=== PATIENT | female | born 1930 | race Two or more races ===

== ENCOUNTER 2016-11-12 23:05 | Inpatient (IN) | payer MEDICARE ==
[~2016-11-12] VITALS: Ht 167.6 cm; Wt 77.6 kg
[2016-11-12] MEDS ORDERED: ZOFRAN4 M3 ORAL (23:17)
[2016-11-12] MEDS ORDERED: WARFARIN SODIU2.5 MG ORAL (23:17)
[2016-11-12] MEDS ORDERED: AMLODIPINE BESYL5 MG ORAL (23:17)
[2016-11-12] MEDS ORDERED: FUROSEMIDE40 MG ORAL (23:17)
[2016-11-12] MEDS ORDERED: Hydrocortisone PO (23:17)
[2016-11-12] MEDS ORDERED: Ipratropium 0.02% Inh Soln 2.5ml UD HHN ONE (23:30)
[2016-11-12] MEDS ORDERED: Albuterol ud Inhalation HHN ONE (23:30)
[2016-11-13] VITALS (9 sets, daily range): BP systolic 83–111; BP diastolic 21–67
[2016-11-13 01:26] LABS: BASOPHILS % (AUTO) 0.4 % (0.0-2.0); LYMPHOCYTES % (AUTO) 33.1 % (20.0-45.0); MEAN CORPUSCULAR HEMOGLOBIN 33.9 PG (27.0-31.0); MEAN CORPUSCULAR HGB CONC 31.3 G/DL (32.0-36.0); MEAN CORPUSCULAR VOLUME 108 FL (80-99); MEAN PLATELET VOLUME 6.3 FL (6.5-10.1); MONOCYTES % (AUTO) 7.9 % (1.0-10.0); NEUTROPHILS % (AUTO) 57.7 % (45.0-75.0); PLATELET COUNT 173 K/UL (150-450); RED BLOOD COUNT 4.22 M/UL (4.20-5.40); RED CELL DISTRIBUTION WIDTH 14.1 % (11.6-14.8); WHITE BLOOD COUNT 11.4 K/UL (4.8-10.8)
[2016-11-13 01:39] LABS: INR 2.6 (0.9-1.1); PROTHROMBIN TIME 27.8 SEC (9.30-11.50)
[2016-11-13 02:14] LABS: ALANINE AMINOTRANSFERASE 10 U/L (3-33); ALBUMIN/GLOBULIN RATIO 0.8 (1.0-2.7); ANION GAP 22 (5-15); ASPARTATE AMINO TRANSFERASE 45 U/L (5-40); CALCIUM 8.6 mg/dL (8.6-10.2); CARBON DIOXIDE 19 mEQ/L (20-30); CHLORIDE 94 mEQ/L (98-107); CREATININE 2.5 mg/dL (0.5-0.9); HEMOLYSIS 157; POTASSIUM 4.9 mEQ/L (3.4-4.9); SODIUM 135 mEQ/L (135-145); TOTAL PROTEIN 7.9 g/dL (6.6-8.7); TROPONIN I 0.33 ng/mL (<=0.30)
[2016-11-13 02:29] LABS: CKMB 6.3 ng/mL (< 3.8)
[2016-11-13] MEDS ORDERED: Hydrocortisone 20mg tab ORAL ONE (02:45)
--- NOTE | 2016-11-13 03:47 | Emergency Room Report ---
History of Present Illness General Chief Complaint: Dyspnea/Respdistress Source: Patient Present Illness HPI Patient presents with complaints of shortness of breath Initially was in acute distress not able to provide much input Patient hasn't significantly better throughout her stay and became more interactive and verbal Stating that she was having bodyaches Denies any headache neck pain or photophobia however Denies any chest pain Patient reports feeling sensation of shortness of breath She states that she has this on a usual basis but she felt that her symptoms had worsened denies any pleurisy Denies any vomiting or diarrhea denies any flank pain Patient has medical records reviewed from [facility] appears to have multiple comorbidities including aortic stenosis chronic hypoxia atrial fibrillation severe adrenal insufficiency anticoagulation history of anemia COPD Allergies: Coded Allergies: No Known Allergies (Unverified , 11/13/16) Patient History Past Medical History: see triage record Pertinent Family History: none Now: No Reviewed Nursing Documentation: PMH: Agreed, PSxH: Agreed Nursing Documentation-PMH Hx Hypertension: Yes Hx COPD: Yes Review of Systems All Other Systems: negative except mentioned in HPI Physical Exam Vital Signs Date Time Temp Pulse Resp B/P Pulse Ox O2 Delivery O2 Flow Rate FiO2 11/12/16 23:05 98.1 93 22 93/53 98 Simple Mask 8.0 Sp02 EP Interpretation: reviewed, normal General Appearance: moderate distress - Appeared short of breath and uncomfortable Head: normocephalic, atraumatic Eyes: bilateral eye EOMI, bilateral eye PERRL ENT: normal pharynx, no angioedema Neck: supple, no carotid bruits Respiratory: crackles - In both lower lobes and appear tachypneic, no obvious retractions were noted Cardiovascular #1: no gallop, irregularly irregular, other - Small amount of dependent edema in both lower extremities Gastrointestinal: soft, no mass Genitourinary: no CVA tenderness Musculoskeletal: normal inspection Neurologic: alert, oriented x3, responsive, motor strength/tone normal Skin: no rash, warm/dry Lymphatic: normal inspection Procedures Critical Care Time Critical Care Time 40 minutes for multiple re\re evaluations critical presentation with hypoxia And hypotensive Concern for end organ injury and life-threatening pathology Not including any procedural time Medical Decision Making Diagnostic Impression: Primary Impression: Respiratory distress Additional Impressions: Hypotension Atrial fibrillation Elevated troponin ER Course Patient is a fairly complex patient with multiple differential to consideration including but not limited to cardiac cardiopulmonary and vascular emergencies Patient has also history of severe adrenal insufficiency Was given steroid medication for that Patient received oxygenation IV hydration as well Continues to do significantly better blood pressure is improved and the patient' s symptoms improved Patient had become more verbal and appropriate CAT scan imaging was not obtained given the patient's mentation at this time Patient's troponin is mildly elevated She is however appropriately anticoagulated At this time admitted for further inpatient care Labs Test 11/12/16 23:40 11/13/16 01:30 White Blood Count 11.4 K/UL (4.8-10.8) Red Blood Count 4.22 M/UL (4.20-5.40) Hemoglobin 14.3 G/DL (12.0-16.0) Hematocrit 45.8 % (37.0-47.0) Mean Corpuscular Volume 108 FL (80-99) Mean Corpuscular Hemoglobin 33.9 PG (27.0-31.0) Mean Corpuscular Hemoglobin Concent 31.3 G/DL (32.0-36.0) Red Cell Distribution Width 14.1 % (11.6-14.8) Platelet Count 173 K/UL (150-450) Mean Platelet Volume 6.3 FL (6.5-10.1) Neutrophils (%) (Auto) 57.7 % (45.0-75.0) Lymphocytes (%) (Auto) 33.1 % (20.0-45.0) Monocytes (%) (Auto) 7.9 % (1.0-10.0) Eosinophils (%) (Auto) 1.0 % (0.0-3.0) Basophils (%) (Auto) 0.4 % (0.0-2.0) Prothrombin Time 27.8 SEC (9.30-11.50) Prothromb Time International Ratio 2.6 (0.9-1.1) Activated Partial Thromboplast Time 55 SEC (23-33) Sodium Level 135 mEQ/L (135-145) Potassium Level 4.9 mEQ/L (3.4-4.9) Chloride Level 94 mEQ/L (98-107) Carbon Dioxide Level 19 mEQ/L (20-30) Anion Gap 22 (5-15) Blood Urea Nitrogen 37 mg/dL (7-23) Creatinine 2.5 mg/dL (0.5-0.9) Estimat Glomerular Filtration Rate mL/min (>60) Glucose Level 69 mg/dL (74-106) Calcium Level 8.6 mg/dL (8.6-10.2) Total Bilirubin 0.5 mg/dL (0.0-1.2) Aspartate Amino Transf (AST/SGOT) 45 U/L (5-40) Alanine Aminotransferase (ALT/SGPT) 10 U/L (3-33) Alkaline Phosphatase 51 U/L (35-104) Total Creatine Kinase 341 U/L (26-140) Creatine Kinase MB 6.3 ng/mL (< 3.8) Creatine Kinase MB Relative Index 1.8 Troponin I 0.33 ng/mL (<=0.30) Pro-B-Type Natriuretic Peptide 9792 pg/mL (0-450) Total Protein 7.9 g/dL (6.6-8.7) Albumin 3.7 g/dL (3.5-5.2) Globulin 4.2 g/dL Albumin/Globulin Ratio 0.8 (1.0-2.7) EKG Diagnostic Results Rate: normal Rhythm: other ST Segments: other - Atrial fibrillation Rhythm Strip Diag. Results EP Interpretation: yes Rate: 89 Rhythm: no PVC's, no ectopy, other - atrial fibrillation Chest X-Ray Diagnostic Results EP Interpretation: Yes Findings: no consolidation, no effusion, no pneumothorax Number of Views: 1 Last Vital Signs Date Time Temp Pulse Resp B/P Pulse Ox O2 Delivery O2 Flow Rate FiO2 11/13/16 03:20 79 22 109/48 98 Nasal Cannula 4.0 11/12/16 23:05 98.1 Status: improved Disposition: ADMITTED INPATIENT Condition: Critical Referrals: [facility] (PCP) JACINTA KRISHNAMURTHY D.O. Nov 13, 2016 03:47
[2016-11-13] MEDS ORDERED: Norco 5mg/325mg tab ORAL PRN (07:00)
[2016-11-13] MEDS ORDERED: Furosemide 40mg tab ORAL SCH (09:00)
[2016-11-13] MEDS ORDERED: Hydrocortisone 20mg tab ORAL SCH (09:00)
[2016-11-13 09:21] LABS: THYROID STIMULATING HORMONE 0.008 uIU/mL (0.300-4.500)
[2016-11-13 09:22] LABS: TROPONIN I < 0.30 ng/mL (<=0.30)
--- NOTE | 2016-11-13 11:34 | Diagnostic Imaging Report ---
Indication: Chest Pain Comparison: August 04, 2006 A single view chest radiograph was obtained. Findings: No definite infiltrate or pulmonary vascular congestion identified. The heart is enlarged. The aorta is mildly enlarged consistent with atherosclerotic vascular disease. The bones are osteopenic. Impression: No acute disease
--- NOTE | 2016-11-13 14:17 | History & Physical ---
History and Physical History & Physicial Cover for Int Med-Dr Rojas no. [id number]. SOFIA BARBOSA Nov 13, 2016 14:17
[2016-11-13] MEDS ORDERED: Promethazine/Codeine 5ml UD ORAL PRN (15:15)
--- NOTE | 2016-11-13 15:32 | Consultation ---
History of Present Illness General Date patient seen: Nov 13, 2016 Chief Complaint: Dyspnea/Respdistress Referring physician: Dr. Rojas Reason for Consultation: dyspnea Present Illness HPI 86 year old female with extensive PMHx, with recurrent hospitalization brought in by Paramedics c/o "not feeling well, dry cough, having a cold". Pt has chronic Afib and cardiac disease as well, she was admitted to telemetry for further work up. Pt was borderline hypotensive with SPB at 90s. She is taking lasix and amlodipine and coumadin for her chronic afib. Allergies: Coded Allergies: No Known Allergies (Unverified , 11/13/16) Medication History Scheduled Amlodipine Besylate* (Amlodipine Besylate*), 5 MG ORAL DAILY, (Reported) Furosemide* (Lasix*), 40 MG ORAL DAILY, (Reported) Warfarin Sod* (Warfarin Sod*), 2.5 MG ORAL DAILY, (Reported) [Hydrocortisone], 20 MG PO q AM, (Reported) Scheduled PRN Ondansetron* (Zofran*), 4 MG ORAL Q6H PRN for Nausea & Vomiting, (Reported) Patient History Healthcare decision maker Resuscitation status Full Code Advanced Directive on File No Past Medical/Surgical History Past Medical/Surgical History: (1) Renal insufficiency (2) Atrial fibrillation Review of Systems Respiratory: Reports: cough, shortness of breath Physical Exam General Appearance: WD/WN Lines, tubes and drains: peripheral, central line HEENT: normocephalic, atraumatic Neck: non-tender, normal alignment Respiratory/Chest: chest wall non-tender Cardiovascular/Chest: normal peripheral pulses Abdomen: normal bowel sounds, non tender Last 24 Hour Vital Signs Date Time Temp Pulse Resp B/P Pulse Ox O2 Delivery O2 Flow Rate FiO2 11/13/16 11:26 98.4 84 18 98/50 92 Nasal Cannula 3.0 11/13/16 08:43 82 101/49 11/13/16 08:00 81 11/13/16 07:59 98.2 82 18 101/49 94 Nasal Cannula 3.0 11/13/16 04:20 97.7 94 22 101/52 94 Nasal Cannula 4.0 11/13/16 04:09 98.1 79 22 109/48 98 Nasal Cannula 4.0 11/13/16 04:04 88 11/13/16 04:00 97.0 90 20 101/54 95 Room Air 11/13/16 03:20 79 22 109/48 98 Nasal Cannula 4.0 11/13/16 01:23 82 18 83/21 100 Simple Mask 3.0 11/13/16 00:00 82 20 92/39 100 Simple Mask 8.0 11/12/16 23:51 85 18 95 Room Air 11/12/16 23:41 87 18 87 Room Air 11/12/16 23:41 87 18 Room Air 11/12/16 23:05 93 22 Simple Mask 8.0 11/12/16 23:05 98.1 93 22 93/53 98 Simple Mask 8.0 Intake and Output 11/12/16 11/13/16 19:00 07:00 Output Total 0 ml Balance 0 ml Output Urine Total 0 ml # Bowel Movements 2 Laboratory Tests Test 11/12/16 23:40 11/13/16 01:30 11/13/16 08:00 White Blood Count 11.4 K/UL (4.8-10.8) H Red Blood Count 4.22 M/UL (4.20-5.40) Hemoglobin 14.3 G/DL (12.0-16.0) Hematocrit 45.8 % (37.0-47.0) Mean Corpuscular Volume 108 FL (80-99) H Mean Corpuscular Hemoglobin 33.9 PG (27.0-31.0) H Mean Corpuscular Hemoglobin Concent 31.3 G/DL (32.0-36.0) L Red Cell Distribution Width 14.1 % (11.6-14.8) Platelet Count 173 K/UL (150-450) Mean Platelet Volume 6.3 FL (6.5-10.1) L Neutrophils (%) (Auto) 57.7 % (45.0-75.0) Lymphocytes (%) (Auto) 33.1 % (20.0-45.0) Monocytes (%) (Auto) 7.9 % (1.0-10.0) Eosinophils (%) (Auto) 1.0 % (0.0-3.0) Basophils (%) (Auto) 0.4 % (0.0-2.0) Prothrombin Time 27.8 SEC (9.30-11.50) H Prothromb Time International Ratio 2.6 (0.9-1.1) H Activated Partial Thromboplast Time 55 SEC (23-33) H Sodium Level 135 mEQ/L (135-145) Potassium Level 4.9 mEQ/L (3.4-4.9) Chloride Level 94 mEQ/L (98-107) L Carbon Dioxide Level 19 mEQ/L (20-30) L Anion Gap 22 (5-15) H Blood Urea Nitrogen 37 mg/dL (7-23) H Creatinine 2.5 mg/dL (0.5-0.9) H Estimat Glomerular Filtration Rate mL/min (>60) Glucose Level 69 mg/dL (74-106) L Calcium Level 8.6 mg/dL (8.6-10.2) Total Bilirubin 0.5 mg/dL (0.0-1.2) Aspartate Amino Transf (AST/SGOT) 45 U/L (5-40) H Alanine Aminotransferase (ALT/SGPT) 10 U/L (3-33) Alkaline Phosphatase 51 U/L (35-104) Total Creatine Kinase 341 U/L (26-140) H Creatine Kinase MB 6.3 ng/mL (< 3.8) H Creatine Kinase MB Relative Index 1.8 Troponin I 0.33 ng/mL (<=0.30) *H < 0.30 ng/mL (<=0.30) Pro-B-Type Natriuretic Peptide 9792 pg/mL (0-450) H Total Protein 7.9 g/dL (6.6-8.7) Albumin 3.7 g/dL (3.5-5.2) Globulin 4.2 g/dL Albumin/Globulin Ratio 0.8 (1.0-2.7) L Thyroid Stimulating Hormone (TSH) 0.008 uIU/mL (0.300-4.500) Free Thyroxine 1.55 ng/dL (0.86-1.85) Height (Feet): 5 Height (Inches): 6.00 Weight (Pounds): 171 Medications Current Medications Medications (Trade) Dose Ordered Sig/Michelle Route PRN Reason Start Time Stop Time Status Last Admin Dose Admin Acetaminophen (Tylenol) 650 mg Q6H PRN ORAL Mild Pain/Temp > 100.5 11/13/16 07:00 12/13/16 06:59 Acetaminophen/ Hydrocodone Bitart ([place] 5/325) 1 tab Q6H PRN ORAL For Pain 11/13/16 07:00 11/20/16 06:59 Amlodipine Besylate (Norvasc) 5 mg DAILY ORAL 11/13/16 09:00 12/13/16 08:59 11/13/16 08:43 Dextrose (Dextrose 50%) STAT PRN IV Hypoglycemia 11/13/16 07:00 12/13/16 06:59 Furosemide (Lasix) 40 mg DAILY ORAL 11/13/16 09:00 12/13/16 08:59 11/13/16 08:44 Hydrocortisone (Cortef) 20 mg DAILY ORAL 11/13/16 09:00 12/13/16 08:59 11/13/16 10:04 Ondansetron HCl (Zofran) 4 mg Q6H PRN ORAL Nausea & Vomiting 11/13/16 07:15 12/13/16 07:14 Piperacillin Sod/ Tazobactam Sod/ Sodium Chloride (Zosyn/Sodium Chloride 110ml bag) 100 ml @ 200 mls/hr EVERY 6 HOURS IVPB 11/13/16 15:15 11/20/16 15:14 UNV Promethazine HCl/ Codeine 5 ml 5 ml Q4H PRN ORAL For Cough 11/13/16 15:15 12/13/16 15:14 Warfarin Sodium (Coumadin per pharmacy) 1 ea DAILY PRN MISC Per rx protocol 11/13/16 07:15 12/13/16 07:14 Warfarin Sodium (Coumadin) 2.5 mg COUMADIN ONCE ORAL 11/13/16 17:00 11/13/16 17:01 Assessment/Plan Problem List: (1) Respiratory distress ICD Codes: R06.00 - Dyspnea, unspecified SNOMED: 773761968 (2) ATN (acute tubular necrosis) ICD Codes: N17.0 - Acute kidney failure with tubular necrosis SNOMED: 97387056 (3) Hypotension ICD Codes: I95.9 - Hypotension, unspecified SNOMED: 62169297, 548788440 (4) Atrial fibrillation ICD Codes: I48.91 - Unspecified atrial fibrillation SNOMED: 03872690 (5) Elevated troponin ICD Codes: R79.89 - Other specified abnormal findings of blood chemistry SNOMED: 598064938, 885149418 (6) Renal insufficiency ICD Codes: N28.9 - Disorder of kidney and ureter, unspecified SNOMED: 973937569 Assessment/Plan IV abx IV steroids, stress dose echo cardiac evaluation hold amlodipine, lasix renal studies check sputum respiratory treatment LILA BUITRAGO Nov 13, 2016 15:32
--- NOTE | 2016-11-13 16:48 | Consultation ---
Consult Note Consult Note asked to evaluate for renal failure- Chief Complaint: Dyspnea/Respdistress HPI Patient presents with complaints of shortness of breath Initially was in acute distress not able to provide much input Patient hasn't significantly better throughout her stay and became more interactive and verbal Stating that she was having bodyaches Denies any headache neck pain or photophobia however Denies any chest pain Patient reports feeling sensation of shortness of breath She states that she has this on a usual basis but she felt that her symptoms had worsened denies any pleurisy Denies any vomiting or diarrhea denies any flank pain Patient has medical records reviewed from [facility] appears to have multiple comorbidities including aortic stenosis chronic hypoxia atrial fibrillation severe adrenal insufficiency anticoagulation history of anemia COPD Hx Hypertension: Yes Hx COPD: Yes Physical Exam Vital Signs Date Time Temp Pulse Resp B/P Pulse Ox O2 Delivery O2 Flow Rate FiO2 11/12/16 23:05 98.1 93 22 93/53 98 Simple Mask 8.0 Sp02 EP Interpretation: reviewed, normal General Appearance: moderate distress - Appeared short of breath and uncomfortable Head: normocephalic, atraumatic Eyes: bilateral eye EOMI, bilateral eye PERRL ENT: normal pharynx, no angioedema Neck: supple, no carotid bruits Respiratory: crackles - In both lower lobes and appear tachypneic, no obvious retractions were noted Cardiovascular #1: no gallop, irregularly irregular, other - Small amount of dependent edema in both lower extremities Gastrointestinal: soft, no mass Genitourinary: no CVA tenderness Musculoskeletal: normal inspection Neurologic: alert, oriented x3, responsive, motor strength/tone normal Skin: no rash, warm/dry Lymphatic: normal inspection Assessment/Plan Renal failure: likely acute, ? superimposed on CKD. Respiratory distress Hypotension Atrial fibrillation Elevated troponin Plan: Optimize cardiac and pulmonary status- 2 D Echo- SHIRA Kidney- Urine studies- Avoid Nephrotoxics- Monitor renal parameters- per cardiology PAMELA MCKAY Nov 13, 2016 16:48
[2016-11-13] MEDS ORDERED: Warfarin Sodium 2.5mg ORAL ONE (17:00)
[2016-11-13] MEDS: Hydrocortisone 100mg Inj IV SCH ×2 (17:05→21:04)
[2016-11-13 17:28] LABS: ALANINE AMINOTRANSFERASE 8 U/L (3-33); ALBUMIN/GLOBULIN RATIO 0.9 (1.0-2.7); ANION GAP 17 (5-15); ASPARTATE AMINO TRANSFERASE 37 U/L (5-40); CALCIUM 8.3 mg/dL (8.6-10.2); CARBON DIOXIDE 23 mEQ/L (20-30); CHLORIDE 97 mEQ/L (98-107); HEMOLYSIS 5; POTASSIUM 5.3 mEQ/L (3.4-4.9); SODIUM 137 mEQ/L (135-145); TOTAL PROTEIN 7.3 g/dL (6.6-8.7); URIC ACID 11.7 mg/dL (3.0-7.5)
[2016-11-13] MEDS ORDERED: DuoNeb 0.5-3(2.5)mg/3ml neb HHN PRN (17:30)
[2016-11-13 17:39] LABS: CORTISOL 43.8 ug/dL; FREE T3 0.8 pg/mL (2.3-4.2)
--- NOTE | 2016-11-13 21:38 | History and Physical Report ---
DATE OF ADMISSION: 11/13/2016 CHIEF COMPLAINT: The patient is an 86-year-old female, presents with complaint of weakness, anorexia and shortness of breath. HISTORY OF PRESENT ILLNESS: Began on 11/11/2016. The patient began to experience generalized weakness. The patient states she was unable to eat. The patient also was short of breath. The patient denies fever, chills, or cough. The patient presented to [facility] emergency room. An initial chest x-ray was reported as no acute disease. The patient is admitted for shortness of breath to rule out congestive heart failure versus pneumonia. PAST MEDICAL HISTORY: Significant for 1. Chronic obstructive pulmonary disease. 2. Atrial fibrillation. 3. Adrenal insufficiency. 4. Anemia. PAST SURGICAL HISTORY: The patient denies. MEDICATIONS: Current medications 1. Norvasc 5 mg one tablet p.o. daily. 2. Lasix 40 mg one tablet p.o. daily. 3. Coumadin 2.5 mg p.o. daily. 4. Hydrocortisone 20 mg one tablet p.o. every morning. ALLERGIES: The patient states she has many allergies, however, she cannot remember which one. SOCIAL HISTORY: The patient is single, however, lives with a 24-hour caregiver. The patient denies tobacco or alcohol use. REVIEW OF SYSTEMS: Constitutional: The patient denies fevers or chills. The patient denies weight loss or weight gain. The patient does complain of anorexia. The patient complains of generalized weakness. HEENT: The patient denies ear or throat pain. The patient denies headache. Cardiovascular: The patient denies palpitations or chest pain. Chest: The patient complains of shortness of breath. The patient denies wheezes. The patient denies cough. Abdomen: The patient denies nausea, vomiting, diarrhea or constipation. The patient does complain of anorexia. Genitourinary: The patient denies dysuria or increased frequency of urination. Neuromuscular: The patient complains of generalized weakness. The patient denies seizures. PHYSICAL EXAMINATION: GENERAL: The patient is well-developed and well-nourished elderly white female, in no apparent distress. VITAL SIGNS: Temperature 98.2 degrees, respirations 18, pulse 82, and blood pressure 101/49. HEENT: Eyes, pupils are equal and responsive to light and accommodation. Extraocular movements are intact. NECK: Supple. No lymphadenopathy. CHEST: Lungs are clear to auscultation bilaterally without wheezes or rales. CARDIOVASCULAR: Regular rhythm and rate rate. S1 and S2 normal without murmurs, rubs, or gallops. ABDOMEN: Soft, nontender, and nondistended. Positive bowel sounds. No evidence of hepatosplenomegaly. Currently, no rebound or guarding noted. EXTREMITIES: No clubbing, cyanosis, or edema. RECTAL/GENITAL: Refused. NEUROLOGIC: Cranial Nerves II through XII are grossly intact without focal deficits. Motor strength is 5/5 bilaterally. Deep tendon reflexes 2+ plantar. LABORATORY AND DIAGNOSTIC DATA: WBC 11.4, hemoglobin 14.3, hematocrit 45.8, and platelets 272,000. Sodium 135, potassium 4.9, chloride 194, CO2 19, BUN 37, creatinine 2.5 and glucose 69. Urinalysis is pending. Troponin elevated at 0.33. Chest x-ray was reported as no acute disease. ASSESSMENT: This is a 86-year-old female with 1. Shortness of breath. 2. Chronic obstructive pulmonary disease. 3. Hypertension. 4. Atrial fibrillation. 5. Adrenal insufficiency. 6. Anemia. 7. Renal failure. TREATMENT: 1. Shortness of breath/chronic obstructive pulmonary disease. A Pulmonary consultation with Dr. Jass Moralez. The patient has been placed empirically on albuterol nebulized q.4 h. p.r.n. We will follow recommendations from Pulmonary. 2. Hypertension continue Norvasc as above. 3. Adrenal insufficiency. Continue hydrocortisone (Cortef) as above. 4. Anemia, stable. 5. Renal failure. A Nephrology consultation with Dr. Nava. Ruddy Dale M.D. DR: JEN JOB#: [id number] CC:
[2016-11-13] MEDS ORDERED: Sodium Polystyrene Sulfonate 15gm Powder ORAL ONE (22:30)
[2016-11-14] VITALS: BP 120/71
[2016-11-14 04:00] VITALS: BP 121/73
[2016-11-14 04:46] LABS: APPEARANCE,URINE CLEAR; KETONES,URINE NEGATIVE (NEGATIVE); LEUKOCYTE ESTERASE ,URINE 3+ (NEGATIVE); NITRITE,URINE NEGATIVE (NEGATIVE); PH,URINE 5 (4.5-8.0); PROTEIN,URINE 3+ (NEGATIVE); UROBILINOGEN,URINE NORMAL MG/DL (0.0-1.0)
[2016-11-14 05:04] LABS: BACTERIA,URINE MODERATE /HPF; SQUAMOUS EPITHELIAL CELL,UR MODERATE /LPF (NONE/OCC)
[2016-11-14 05:05] LABS: COARSE GRANULAR CASTS,URINE 0-2 /LPF; FINE GRANULAR CASTS,URINE 0-2 /LPF
[2016-11-14] MEDS: Hydrocortisone 100mg Inj IV SCH ×2 (05:54→13:32)
[2016-11-14 08:20] LABS: TROPONIN I < 0.30 ng/mL (<=0.30)
[2016-11-14 08:24] LABS: LYMPHOCYTES % (AUTO) 13.2 % (20.0-45.0); MEAN CORPUSCULAR HEMOGLOBIN 33.6 PG (27.0-31.0); MEAN CORPUSCULAR HGB CONC 33.2 G/DL (32.0-36.0); MEAN CORPUSCULAR VOLUME 101 FL (80-99); MEAN PLATELET VOLUME 6.6 FL (6.5-10.1); NEUTROPHILS % (AUTO) 80.7 % (45.0-75.0); PLATELET COUNT 156 K/UL (150-450); RED BLOOD COUNT 3.59 M/UL (4.20-5.40); RED CELL DISTRIBUTION WIDTH 11.8 % (11.6-14.8); WHITE BLOOD COUNT 5.1 K/UL (4.8-10.8)
[2016-11-14 08:38] VITALS: BP 128/75
[2016-11-14 09:01] LABS: ALANINE AMINOTRANSFERASE 8 U/L (3-33); ALBUMIN/GLOBULIN RATIO 0.8 (1.0-2.7); ANION GAP 23 (5-15); ASPARTATE AMINO TRANSFERASE 36 U/L (5-40); CALCIUM 8.1 mg/dL (8.6-10.2); CARBON DIOXIDE 20 mEQ/L (20-30); CHLORIDE 98 mEQ/L (98-107); CHOLESTEROL 242 mg/dL (< 200); CHOLESTEROL/HDL RATIO 9.3 (3.3-4.4); CREATININE 2.7 mg/dL (0.5-0.9); HEMOLYSIS 2; LDL CHOLESTEROL (CALC.) 180 mg/dL (60-99); MAGNESIUM 2.2 mg/dL (1.7-2.5); PHOSPHORUS 4.7 mg/dL (2.5-4.8); POTASSIUM 3.9 mEQ/L (3.4-4.9); SODIUM 141 mEQ/L (135-145); TOTAL PROTEIN 7.6 g/dL (6.6-8.7)
[2016-11-14 09:19] LABS: CRP QUANT 23.6 mg/dL (< 0.5); URIC ACID 11.4 mg/dL (3.0-7.5)
[2016-11-14 09:20] LABS: HEMOGLOBIN A1C 5.6 % (< 6.0)
[2016-11-14 09:29] LABS: INR 4.7 (0.9-1.1)
--- NOTE | 2016-11-14 11:57 | General Progress Note ---
Assessment/Plan Status: stable Status Narrative Cr stable Assessment/Plan Renal failure: likely acute, ? superimposed on CKD. Respiratory distress Hypotension Atrial fibrillation Elevated troponin Plan: Optimize cardiac and pulmonary status- 2 D Echo- SHIRA Kidney- Urine studies- Avoid Nephrotoxics- Monitor renal parameters- slow hydrate- Iron studies- per cardiology Subjective ROS Limited/Unobtainable: No Constitutional: Reports: malaise Allergies: Coded Allergies: No Known Allergies (Unverified , 11/13/16) Objective Last 24 Hour Vital Signs Date Time Temp Pulse Resp B/P Pulse Ox O2 Delivery O2 Flow Rate FiO2 11/14/16 08:38 97.0 95 20 128/75 95 Nasal Cannula 3.0 11/14/16 08:00 89 11/14/16 04:00 89 11/14/16 04:00 97.2 87 20 121/73 92 Nasal Cannula 2.0 11/14/16 00:00 89 11/14/16 00:00 97.7 94 20 120/71 92 Room Air 11/13/16 20:00 98.2 88 19 111/67 91 Room Air 11/13/16 20:00 83 11/13/16 16:00 81 11/13/16 15:48 98.2 87 19 105/62 91 Room Air 11/13/16 12:00 78 Intake and Output 11/13/16 11/14/16 19:00 07:00 Intake Total 1174 ml 245 ml Balance 1174 ml 245 ml Intake Oral 175 ml 120 ml IV Total 999 ml 125 ml # Voids 1 Laboratory Tests 11/13/16 15:35: Sodium Level 137, Potassium Level 5.3H, Chloride Level 97L, Carbon Dioxide Level 23, Anion Gap 17H, Blood Urea Nitrogen 47H, Creatinine 3.0H, Estimat Glomerular Filtration Rate , Glucose Level 151H, Osmolality [Pending], Uric Acid 11.7H, Calcium Level 8.3L, Total Bilirubin 0.2, Aspartate Amino Transf (AST /SGOT) 37, Alanine Aminotransferase (ALT/SGPT) 8, Alkaline Phosphatase 45, Total Creatine Kinase 417H, Total Protein 7.3, Albumin 3.5, Globulin 3.8, Albumin/Globulin Ratio 0.9L, Free Triiodothyronine 0.8L, Cortisol 43.8 11/14/16 03:20: Urine Color Yellow, Urine Appearance Clear, Urine pH 5, Urine Specific [place] 1.020, Urine Protein 3+H, Urine Glucose (UA) Negative, Urine Ketones Negative, Urine Occult Blood 5+H, Urine Nitrite Negative, Urine Bilirubin Negative, Urine Urobilinogen Normal, Urine Leukocyte Esterase 3+H, Urine RBC 10-15H, Urine WBC 10-15H, Urine Squamous Epithelial Cells ModerateH, Urine Bacteria ModerateH, Urine Fine Granular Casts 0-2H, Urine Coarse Granular Casts 0-2H, Urine Eosinophils None seen, Urine Osmolality [Pending], Urine Random Sodium 25, Urine Random Chloride 35, Urine Potassium Timed 59 11/14/16 07:50: Sodium Level 141, Potassium Level 3.9, Chloride Level 98, Carbon Dioxide Level 20, Anion Gap 23H, Blood Urea Nitrogen 47H, Creatinine 2.7H, Estimat Glomerular Filtration Rate , Glucose Level 118H, Uric Acid 11.4H, Calcium Level 8.1L, Total Bilirubin 0.3, Aspartate Amino Transf (AST/SGOT) 36, Alanine Aminotransferase (ALT/SGPT) 8, Alkaline Phosphatase 42, Total Creatine Kinase 415H, Total Protein 7.6, Albumin 3.4L, Globulin 4.2, Albumin/Globulin Ratio 0.8L , White Blood Count 5.1#, Red Blood Count 3.59L, Hemoglobin 12.1, Hematocrit 36.3L, Mean Corpuscular Volume 101H, Mean Corpuscular Hemoglobin 33.6H, Mean Corpuscular Hemoglobin Concent 33.2, Red Cell Distribution Width 11.8, Platelet Count 156, Mean Platelet Volume 6.6, Neutrophils (%) (Auto) 80.7H, Lymphocytes ( %) (Auto) 13.2L, Monocytes (%) (Auto) 6.0, Eosinophils (%) (Auto) 0.0, Basophils (%) (Auto) 0.0, Prothrombin Time 50.0H, Prothromb Time International Ratio 4.7H, Hemoglobin A1c 5.6, Phosphorus Level 4.7, Magnesium Level 2.2, Iron Level [Pending], Unsaturated Iron Binding [Pending], Ferritin [Pending], Gamma Glutamyl Transpeptidase 56H, Troponin I < 0.30, C-Reactive Protein, Quantitative 23.6H, Pro-B-Type Natriuretic Peptide 4852H, Triglycerides Level 180H, Cholesterol Level 242H, LDL Cholesterol 180H, HDL Cholesterol 26, Cholesterol/HDL Ratio 9.3H, Vitamin B12 Level [Pending], Folate [Pending] Height (Feet): 5 Height (Inches): 6.00 Weight (Pounds): 171 General Appearance: no apparent distress Objective PE not changed PAMELA MCKAY Nov 14, 2016 11:57
[2016-11-14 12:51] VITALS: BP 123/73
[2016-11-14 15:55] LABS: PROTHROMBIN TIME 70.3 SEC (9.30-11.50)
[2016-11-14 16:00] VITALS: BP 117/64
--- NOTE | 2016-11-14 16:00 | Pulmonology Progress Note ---
Assessment/Plan Problems: (1) Respiratory distress (2) ATN (acute tubular necrosis) (3) Hypotension (4) Atrial fibrillation (5) Elevated troponin (6) Renal insufficiency Assessment/Plan improving no new cultures continue abx bun/creatinine decreasing continue steroids ok to transfer to [place] Subjective ROS Limited/Unobtainable: No Interval Events: still feels chilly Constitutional: Reports: no symptoms Gastrointestinal/Abdominal: Reports: no symptoms Allergies: Coded Allergies: No Known Allergies (Unverified , 11/13/16) Objective Last 24 Hour Vital Signs Date Time Temp Pulse Resp B/P Pulse Ox O2 Delivery O2 Flow Rate FiO2 11/14/16 12:51 97.2 90 20 123/73 94 Nasal Cannula 3.0 11/14/16 12:00 90 11/14/16 08:38 97.0 95 20 128/75 95 Nasal Cannula 3.0 11/14/16 08:00 89 11/14/16 04:00 89 11/14/16 04:00 97.2 87 20 121/73 92 Nasal Cannula 2.0 11/14/16 00:00 89 11/14/16 00:00 97.7 94 20 120/71 92 Room Air 11/13/16 20:00 98.2 88 19 111/67 91 Room Air 11/13/16 20:00 83 11/13/16 16:00 81 Intake and Output 11/13/16 11/14/16 19:00 07:00 Intake Total 1174 ml 245 ml Balance 1174 ml 245 ml Intake Oral 175 ml 120 ml IV Total 999 ml 125 ml # Voids 1 General Appearance: WD/WN HEENT: normocephalic, atraumatic Respiratory/Chest: chest wall non-tender, lungs clear Cardiovascular: normal peripheral pulses, normal rate Abdomen: normal bowel sounds, soft, non tender Genitourinary: normal external genitalia Extremities: no cyanosis Skin: no rash Neurologic/Psychiatric: micro paleontologist II-XII grossly normal Microbiology Date/Time Source Procedure Growth Status 11/12/16 23:55 Blood Blood Culture - Preliminary NO GROWTH AFTER 24 HOURS Resulted 11/12/16 23:40 Blood Blood Culture - Preliminary NO GROWTH AFTER 24 HOURS Resulted 11/13/16 20:20 Sputum Gram Stain - Final Resulted 11/13/16 20:20 Sputum Sputum Culture Pending Resulted Laboratory Tests 11/14/16 03:20: Urine Color Yellow, Urine Appearance Clear, Urine pH 5, Urine Specific [place] 1.020, Urine Protein 3+H, Urine Glucose (UA) Negative, Urine Ketones Negative, Urine Occult Blood 5+H, Urine Nitrite Negative, Urine Bilirubin Negative, Urine Urobilinogen Normal, Urine Leukocyte Esterase 3+H, Urine RBC 10-15H, Urine WBC 10-15H, Urine Squamous Epithelial Cells ModerateH, Urine Bacteria ModerateH, Urine Fine Granular Casts 0-2H, Urine Coarse Granular Casts 0-2H, Urine Eosinophils None seen, Urine Osmolality [Pending], Urine Random Sodium 25, Urine Random Chloride 35, Urine Potassium Timed 59 11/14/16 07:50: White Blood Count 5.1#, Red Blood Count 3.59L, Hemoglobin 12.1, Hematocrit 36.3L , Mean Corpuscular Volume 101H, Mean Corpuscular Hemoglobin 33.6H, Mean Corpuscular Hemoglobin Concent 33.2, Red Cell Distribution Width 11.8, Platelet Count 156, Mean Platelet Volume 6.6, Neutrophils (%) (Auto) 80.7H, Lymphocytes ( %) (Auto) 13.2L, Monocytes (%) (Auto) 6.0, Eosinophils (%) (Auto) 0.0, Basophils (%) (Auto) 0.0, Prothrombin Time 50.0H, Prothromb Time International Ratio 4.7H, Sodium Level 141, Potassium Level 3.9, Chloride Level 98, Carbon Dioxide Level 20, Anion Gap 23H, Blood Urea Nitrogen 47H, Creatinine 2.7H, Estimat Glomerular Filtration Rate , Glucose Level 118H, Hemoglobin A1c 5.6, Uric Acid 11.4H, Calcium Level 8.1L, Phosphorus Level 4.7, Magnesium Level 2.2, Iron Level 33L, Total Iron Binding Capacity 180L, Percent Iron Saturation 18, Unsaturated Iron Binding 147, Ferritin 597H, Total Bilirubin 0.3, Gamma Glutamyl Transpeptidase 56H, Aspartate Amino Transf (AST/SGOT) 36, Alanine Aminotransferase (ALT/SGPT) 8, Alkaline Phosphatase 42, Total Creatine Kinase 415H, Troponin I < 0.30, C-Reactive Protein, Quantitative 23.6H, Pro-B-Type Natriuretic Peptide 4852H, Total Protein 7.6, Albumin 3.4L, Globulin 4.2, Albumin/Globulin Ratio 0.8L, Triglycerides Level 180H, Cholesterol Level 242H, LDL Cholesterol 180H, HDL Cholesterol 26, Cholesterol/HDL Ratio 9.3H, Vitamin B12 Level 416, Folate [Pending] 11/14/16 15:00: Prothrombin Time [Pending], Prothromb Time International Ratio [Pending] Current Medications Medications (Trade) Dose Ordered Sig/Michelle Route PRN Reason Start Time Stop Time Status Last Admin Dose Admin Acetaminophen (Tylenol) 650 mg Q6H PRN ORAL Mild Pain/Temp > 100.5 11/13/16 07:00 12/13/16 06:59 Acetaminophen/ Hydrocodone Bitart ([place] 5/325) 1 tab Q6H PRN ORAL For Pain 11/13/16 07:00 11/20/16 06:59 Albuterol/ Ipratropium 3 ml 3 ml Q4H PRN HHN Shortness of Breath 11/13/16 17:30 11/18/16 17:29 Dextrose (Dextrose 50%) STAT PRN IV Hypoglycemia 11/13/16 07:00 12/13/16 06:59 Hydrocortisone (Solu-CORTEF) 100 mg EVERY 8 HOURS IV 11/13/16 15:45 12/13/16 15:44 11/14/16 13:32 Ondansetron HCl (Zofran) 4 mg Q6H PRN ORAL Nausea & Vomiting 11/13/16 07:15 12/13/16 07:14 Piperacillin Sod/ Tazobactam Sod/ Sodium Chloride (Zosyn/Sodium Chloride 100ml bag) 100 ml @ 25 mls/hr Q12HR@0600,1800 IVPB 11/13/16 18:00 11/20/16 17:59 11/14/16 05:53 Promethazine HCl/ Codeine 5 ml 5 ml Q4H PRN ORAL For Cough 11/13/16 15:15 12/13/16 15:14 Sodium Chloride (Sodium Chloride 1000ml bag) 1,000 ml @ 75 mls/hr [id number] IV 11/14/16 13:00 11/15/16 02:19 11/14/16 13:32 Warfarin Sodium (Coumadin per pharmacy) 1 ea DAILY PRN MISC Per rx protocol 11/13/16 07:15 12/13/16 07:14 LILA BUITRAGO Nov 14, 2016 16:00
--- NOTE | 2016-11-14 16:03 | Cardiac Electrophysiology PN ---
Subjective Subjective Atrial fib RVR, Severe , Renal failure,NL EF. Dictated Objective Last 24 Hour Vital Signs Date Time Temp Pulse Resp B/P Pulse Ox O2 Delivery O2 Flow Rate FiO2 11/14/16 12:51 97.2 90 20 123/73 94 Nasal Cannula 3.0 11/14/16 12:00 90 11/14/16 08:38 97.0 95 20 128/75 95 Nasal Cannula 3.0 11/14/16 08:00 89 11/14/16 04:00 89 11/14/16 04:00 97.2 87 20 121/73 92 Nasal Cannula 2.0 11/14/16 00:00 89 11/14/16 00:00 97.7 94 20 120/71 92 Room Air 11/13/16 20:00 98.2 88 19 111/67 91 Room Air 11/13/16 20:00 83 Intake and Output 11/13/16 11/14/16 19:00 07:00 Intake Total 1174 ml 245 ml Balance 1174 ml 245 ml Intake Oral 175 ml 120 ml IV Total 999 ml 125 ml # Voids 1 Laboratory Tests Test 11/14/16 03:20 11/14/16 07:50 11/14/16 15:00 Urine Color Yellow Urine Appearance Clear Urine pH 5 (4.5-8.0) Urine Specific [place] 1.020 (1.005-1.035) Urine Protein 3+ (NEGATIVE) H Urine Glucose (UA) Negative (NEGATIVE) Urine Ketones Negative (NEGATIVE) Urine Occult Blood 5+ (NEGATIVE) H Urine Nitrite Negative (NEGATIVE) Urine Bilirubin Negative (NEGATIVE) Urine Urobilinogen Normal MG/DL (0.0-1.0) Urine Leukocyte Esterase 3+ (NEGATIVE) H Urine RBC 10-15 /HPF (0 - 2) H Urine WBC 10-15 /HPF (0 - 2) H Urine Squamous Epithelial Cells Moderate /LPF (NONE/OCC) H Urine Bacteria Moderate /HPF (NONE) H Urine Fine Granular Casts 0-2 /LPF (NONE) H Urine Coarse Granular Casts 0-2 /LPF (NONE) H Urine Eosinophils None seen Urine Osmolality Pending Urine Random Sodium 25 mmol/L Urine Random Chloride 35 mmol/L Urine Potassium Timed 59 mmol/L White Blood Count 5.1 K/UL (4.8-10.8) # Red Blood Count 3.59 M/UL (4.20-5.40) L Hemoglobin 12.1 G/DL (12.0-16.0) Hematocrit 36.3 % (37.0-47.0) L Mean Corpuscular Volume 101 FL (80-99) H Mean Corpuscular Hemoglobin 33.6 PG (27.0-31.0) H Mean Corpuscular Hemoglobin Concent 33.2 G/DL (32.0-36.0) Red Cell Distribution Width 11.8 % (11.6-14.8) Platelet Count 156 K/UL (150-450) Mean Platelet Volume 6.6 FL (6.5-10.1) Neutrophils (%) (Auto) 80.7 % (45.0-75.0) H Lymphocytes (%) (Auto) 13.2 % (20.0-45.0) L Monocytes (%) (Auto) 6.0 % (1.0-10.0) Eosinophils (%) (Auto) 0.0 % (0.0-3.0) Basophils (%) (Auto) 0.0 % (0.0-2.0) Prothrombin Time 50.0 SEC (9.30-11.50) H Pending Prothromb Time International Ratio 4.7 (0.9-1.1) H Pending Sodium Level 141 mEQ/L (135-145) Potassium Level 3.9 mEQ/L (3.4-4.9) Chloride Level 98 mEQ/L (98-107) Carbon Dioxide Level 20 mEQ/L (20-30) Anion Gap 23 (5-15) H Blood Urea Nitrogen 47 mg/dL (7-23) H Creatinine 2.7 mg/dL (0.5-0.9) H Estimat Glomerular Filtration Rate mL/min (>60) Glucose Level 118 mg/dL (74-106) H Hemoglobin A1c 5.6 % (< 6.0) Uric Acid 11.4 mg/dL (3.0-7.5) H Calcium Level 8.1 mg/dL (8.6-10.2) L Phosphorus Level 4.7 mg/dL (2.5-4.8) Magnesium Level 2.2 mg/dL (1.7-2.5) Iron Level 33 ug/dL (37-145) L Total Iron Binding Capacity 180 ug/dL (250-400) L Percent Iron Saturation 18 % (15-50) Unsaturated Iron Binding 147 ug/dL (112-346) Ferritin 597 ng/mL (13-150) H Total Bilirubin 0.3 mg/dL (0.0-1.2) Gamma Glutamyl Transpeptidase 56 U/L (5-36) H Aspartate Amino Transf (AST/SGOT) 36 U/L (5-40) Alanine Aminotransferase (ALT/SGPT) 8 U/L (3-33) Alkaline Phosphatase 42 U/L (35-104) Total Creatine Kinase 415 U/L (26-140) H Troponin I < 0.30 ng/mL (<=0.30) C-Reactive Protein, Quantitative 23.6 mg/dL (< 0.5) H Pro-B-Type Natriuretic Peptide 4852 pg/mL (0-450) H Total Protein 7.6 g/dL (6.6-8.7) Albumin 3.4 g/dL (3.5-5.2) L Globulin 4.2 g/dL Albumin/Globulin Ratio 0.8 (1.0-2.7) L Triglycerides Level 180 mg/dL (< 150) H Cholesterol Level 242 mg/dL (< 200) H LDL Cholesterol 180 mg/dL (60-99) H HDL Cholesterol 26 mg/dL (> 60) Cholesterol/HDL Ratio 9.3 (3.3-4.4) H Vitamin B12 Level 416 pg/mL (211-946) Folate Pending Microbiology Date/Time Source Procedure Growth Status 11/12/16 23:55 Blood Blood Culture - Preliminary NO GROWTH AFTER 24 HOURS Resulted 11/12/16 23:40 Blood Blood Culture - Preliminary NO GROWTH AFTER 24 HOURS Resulted 11/13/16 20:20 Sputum Gram Stain - Final Resulted 11/13/16 20:20 Sputum Sputum Culture Pending Resulted KORINA WALTERS Nov 14, 2016 16:03
[2016-11-14 16:38] LABS: INR 6.5 (0.9-1.1)
[2016-11-14] MEDS ORDERED: NS 550ML IV ONE (17:42)
[2016-11-14] MEDS ORDERED: NS 275ml ONE (17:42)
[2016-11-14] MEDS ORDERED: CARDIZEM30 MG ORAL (17:43)
[2016-11-14] MEDS ORDERED: SOLU-CORTEF100 MG IV (17:43)
[2016-11-14] MEDS ORDERED: DUONEB 0.5-3(2.53 ML HHN (17:43)
--- NOTE | 2016-11-14 17:49 | Discharge Summary ---
Discharge Summary Hospital Course Date of Admission Nov 13, 2016 at 02:30 Date of Discharge Admitting Diagnosis dyspnea HPI Addie López is a 86 year old female who was admitted on Nov 13, 2016 at 02 :30 for Dyspnea Hospital Course Dictated for Int Med-Dr Rojas no. [id number]. Discharge Discharge Disposition Patient was discharged to Discharge Diagnoses: SOFIA BARBOSA Nov 14, 2016 17:49
--- NOTE | 2016-11-14 20:07 | Consultation ---
DATE OF CONSULTATION: ENDOCRINOLOGY CONSULTATION CONSULTING PHYSICIAN: Minesh Jacinto M.D. REFERRING PHYSICIAN: Jass Moralez M.D. REASON FOR CONSULTATION: Adrenal insufficiency. HISTORY OF PRESENT ILLNESS: The patient is an 86-year-old female with history of adrenal insufficiency, who presented to the hospital with weakness, anorexia and shortness of breath for the duration of two days. The patient was not able to eat and was feeling short of breath. Denies any fever, chills, or cough. She presented to the emergency room. Her chest x-ray was normal and was admitted for evaluation. The patient was evaluated by Dr. Moralez, a auto inspector and her systolic blood pressure was found to be low at 90. The patient was started on a stress-dose hydrocortisone as an outpatient. She is on hydrocortisone 100 mg daily. Endocrinology is consulted for assist in the management of her adrenal insufficiency. PAST MEDICAL HISTORY: 1. Adrenal insufficiency, on hydrocortisone. 2. Atrial fibrillation. 3. Anemia. 4. COPD. PAST SURGICAL HISTORY: None. MEDICATIONS: As an outpatient, 1. Norvasc 5 mg daily. 2. Lasix 40 mg daily. 3. Coumadin 2.5 mg daily. 4. Hydrocortisone 20 mg daily. ALLERGIES: None listed. REVIEW OF SYSTEMS: As per HPI. PHYSICAL EXAMINATION: VITAL SIGNS: Blood pressure is 121/73, pulse of 87, temperature of 97.2 degrees, and respiratory rate of 20. HEENT: Pupils are reactive to light. Sclerae are anicteric. LUNGS: Decreased breath sounds. HEART: Irregular. ABDOMEN: Positive bowel sounds. EXTREMITIES: Trace edema. LABORATORY VALUES: WBC 11.4, hemoglobin 14, hematocrit 45, and platelets are 173,000. Sodium 137, potassium 5.3, chloride 97, bicarbonate 23, BUN 47, creatinine 3, and glucose 151. Uric acid is 11.7. Calcium 8.3. TSH of 0.008 with a free T3 of 0.8 and cortisone of 43.8. DIAGNOSES: 1. Generalized Weakness 2. Hypotension. 3. Atrial fibrillation. 4. Adrenal insufficiency. 5. Abnormal thyroid function test with suppressed thyroid stimulating hormone and suppressed T3. DISCUSSION: Abnormality in the thyroid function, could be most likely steroid induced. Both TSH and T3 are low, which is most likely due to steroid affect. I do not recommend to treat the patient with the thyroid medication for now. Currently, the patient is on a stress-dose of hydrocortisone 100 mg. q.8 hours. Once stable, we are going to reduce it to 50 mg every eight hours and from that point onwards, start fast taper based on the patient's clinical condition. We will follow the patient during the hospital stay. Thank you, Dr. Moralez, for requesting this consultation. Minesh Jacinto M.D. DR: MADELINE JOB#: [id number] CC: LORRAINE
--- NOTE | 2016-11-14 20:27 | Cardiology Report ---
APPROVED REPORT EKG Measurement Heart [id number] Atrial fibrillation Nonspecific T wave abnormality Abnormal ECG
--- NOTE | 2016-11-14 20:28 | Cardiology Report ---
APPROVED REPORT EKG Measurement Heart [id number] Atrial fibrillation with premature ventricular complexes Nonspecific ST and T wave abnormality Prolonged QT Abnormal ECG
--- NOTE | 2016-11-14 23:57 | Consultation ---
DATE OF CONSULTATION: 11/14/2016 CARDIOLOGY CONSULTATION REFERRING PHYSICIAN: Bryan Rojas M.D. REASON FOR CONSULTATION: Management of atrial fibrillation. HISTORY OF PRESENT ILLNESS: The patient is a very pleasant 86-year-old lady with history of hypertension, , history of COPD, and atrial fibrillation, who was brought to the emergency room with increasing shortness of breath and weakness and anorexia. The patient was not able to eat and was short of breath. In the emergency room, the patient was found to be in atrial fibrillation and was admitted for to rule out congestive heart failure versus pneumonia. REVIEW OF SYSTEMS: Review of systems was thoroughly performed and was negative other what was mentioned in history of present illness. PAST MEDICAL HISTORY: 1. COPD. 2. Atrial fibrillation. 3. Trigonal insufficiency. 4. Anemia. PAST SURGICAL HISTORY: None. MEDICATIONS: 1. Norvasc 5 mg daily. 2. Lasix 20 mg daily. 3. Coumadin 200 mg daily. 4. Hydrocortisone. ALLERGIES: Are listed. SOCIAL HISTORY: She is single, lives with a 24-hour caregiver and does not smoke or drink alcohol. PHYSICAL EXAMINATION: VITAL SIGNS: Blood pressure is 123/73, pulse is 94, respiration is 18, and temperature 97.2 degrees. HEAD AND NECK: No JVD. LUNGS: Coarse rhonchi. CARDIOVASCULAR: Regular S1 and S2 with no gallop or murmur. ABDOMEN: Soft. EXTREMITIES: There is 1+ pitting edema. LABORATORY AND DIAGNOSTIC DATA: Her EKG shows atrial fibrillation with rapid ventricular response, rate around 120. White count of 5.1, hemoglobin 12.1, hematocrit of 36, and platelet count is 136,000. Sodium 141, potassium 3.9, BUN of 47, creatinine of 2.7, and glucose of 118. BNP is 4852. Her INR is 4.7. ASSESSMENT AND PLAN: 1. Atrial fibrillation with rapid ventricular response. I will start the patient on Cardizem 30 mg three times daily, systolic blood pressure more than 120 and heart rate still in 90s. echocardiogram showed ejection fraction of 60% with only trivial pericardial effusion, however, it also showed severe aortic stenosis. 2. Severe aortic stenosis with aortic valve area of 1.7 cm2. The patient may be a candidate for percutaneous aortic valve replacement, that can be considered if the patient goes back to [place]. 3. Chronic obstructive pulmonary disease and pneumonia, on antibiotic with piperacillin. 4. Renal failure, creatinine of 2.5. 5. Troponin leak and was due to patient's renal failure, likely second troponin is negative. The patient does not have any chest pain. Thank you very much, Dr. Rojas, for allowing me to participate in the care of this patient. Please do not hesitate to contact me for any questions regarding my evaluation. Ric Gomez M.D. DR: LALIT JOB#: [id number] CC:
--- NOTE | 2016-11-15 04:48 | Discharge Summary ---
DATE OF ADMISSION: 11/13/2016 DATE OF DISCHARGE: 11/14/2016 ADMITTING DIAGNOSES: 1. Shortness of breath. 2. Respiratory failure. 3. Chronic obstructive pulmonary disease. 4. Hypertension. 5. Atrial fibrillation. 6. Elevated troponin level. 7. Adrenal insufficiency. 8. Anemia. 9. Renal failure. DISCHARGE DIAGNOSES: 1. Shortness of breath. 2. Respiratory failure. 3. Chronic obstructive pulmonary disease. 4. Hypertension. 5. Atrial fibrillation. 6. Elevated troponin. 7. Adrenal insufficiency. 8. Anemia. 9. Renal failure. 10. Acute tubular necrosis. HOSPITAL COURSE BY PROBLEM LIST: 1. Shortness of breath/respiratory failure/chronic obstructive pulmonary disease. A Pulmonary consultation was obtained with Dr. Jass Moralez. The patient was placed on intravenous Solu-Medrol. The patient was given nebulizer treatments every 6 hours. Because of the patient's insurance, the patient was transferred to [place] today 11/14/2016. Transportation has been arranged. The patient has been accepted at [place]. 2. Hypertension. The patient remained on Cardizem 30 mg one tablet p.o. q. 8 h. The patient is to continue this as outpatient. The patient remained on diltiazem 30 mg one tablet p.o. q.8 hours. The patient is to continue this upon transfer to [place]. 3. Atrial fibrillation/elevated troponin. Cardiology consultation was obtained Dr. Ric Gomez. The patient remained on Coumadin during hospitalization. Elevated troponin was thought to be secondary to renal failure. 4. Adrenal insufficiency. The patient was admitted on Solu-Cortef 100 mg p.o. daily. The patient is currently on Solu-Cortef 100 mg every 8 hours. The patient is to continue this upon transfer. 5. Anemia, stable. 6. Renal failure. A Nephrology consultation obtained Dr. Trevin Nava. Renal failure was thought to be secondary to acute tubular necrosis. DISCHARGE MEDICATIONS: Please refer to discharge medication list. DISCHARGE INSTRUCTIONS: The patient discharged today 11/14/2016 to [facility] per [facility] request. Ruddy Dale M.D. DR: Prem JOB#: [id number] CC:
[2016-11-15 09:41] LABS: FOLIC ACID 15.3 ng/mL (3.1-17.5)
--- NOTE | 2016-11-16 08:29 | Cardiology Report ---
APPROVED REPORT EXAM: Two-dimensional and M-mode echocardiogram with Doppler and color Doppler. M-Mode DIMENSIONS IVSd1.1 (0.7-1.1cm)Left Atrium (MM)3.9 (1.6-4.0cm) LVDd3.9 (3.5-5.6cm)Aortic Root2.8 (2.0-3.7cm) PWd1.1 (0.7-1.1cm)Aortic Cusp Exc.1.1 (1.5-2.0cm) LVDs3.2 (2.5-4.0cm) PWs1.4 cm Technically difficult study due to poor acoustic windows and severe SOB. Left ventricular ejection fraction estimated to be 60%. No left ventricular hypertrophy. Possible trivial pericardial effusion. Mild left atrial enlargment seen in 2D. All right cardiac chamber sizes are within normal limits. Aortic valve calcification with decreased cusp excursion c/w severe aortic stenosis. Thickened mitral valve leaflets with normal excursion. Mild mitral annulus and aortic root calcification. Pulmonic valve not well visualized. Normal tricuspid valve structure. IVC at 1.9 cm with minimal physiologic collapse. RAP 10mmHg. A color flow and spectral Doppler study was performed and revealed: Trace aortic regurgitation. Peak aortic valve gradient of 75 mmHg and a mean of 45mmHg. Aortic valve area 0.7cm2 calculated by continuity equation. Mild mitral regurgitation. Mitral inflow velocities not indicated Mild tricuspid regurgitation. Tricuspid systolic velocities suggests peak right ventricular systolic pressure of 57 mmHg. Consistent with severe pulmonary hypertension. No pulmonic regurgitation present.
[2016-11-18 14:30] LABS: OSMOLALITY SERUM 298 mOsm/kg (278-305)
== END 2016-11-14 19:58 | disposition short-term general hospital (02) | DRG 189 ==
LOC: EDBD 23:05 → EMR 23:45 → 2E 11-13 02:30 → EDBEDREQ 11-13 03:29
DX: J96.90 Respiratory failure, unspecified, unspecified whether with hypoxia or hypercapnia (principal); N17.0 Acute kidney failure with tubular necrosis; I95.9 Hypotension, unspecified; E27.40 Unspecified adrenocortical insufficiency; J44.9 Chronic obstructive pulmonary disease, unspecified; I48.91 Unspecified atrial fibrillation; R63.0 Anorexia; I10 Essential (primary) hypertension; D64.9 Anemia, unspecified; I35.0 Nonrheumatic aortic (valve) stenosis; R77.8 Other specified abnormalities of plasma proteins
CPT/HCPCS: 36415; 71010; 80053; 80061; 81001; 82436; 82533; 82550; 82553; 82607; 82728; 82746; 82977; 83036; 83540; 83550; 83735; 83880; 83930; 83935; 84100; 84133; 84300; 84439; 84443; 84481; 84484; 84550; 85025; 85610; 85730; 86140; 87040; 87070; 87086; 87181; 87205; 89050; 93005; 93306; 94640; 94664; 94760

== ENCOUNTER 2016-11-21 20:32 | Emergency (ER) | payer MEDICARE ==
[~2016-11-21] VITALS: Ht 162.6 cm; Wt 54.4 kg
[~2016-11-21 20:32] MED LIST: AMLODIPINE BESYL5 MG ORAL; CARDIZEM30 MG ORAL; DUONEB 0.5-3(2.53 ML HHN; FUROSEMIDE40 MG ORAL; Hydrocortisone PO; SOLU-CORTEF100 MG IV; WARFARIN SODIU2.5 MG ORAL; ZOFRAN4 M3 ORAL
[2016-11-21] MEDS ORDERED: Cefepime HCl 1 GM in NS 55 ML IV SCH (20:45)
[2016-11-21] MEDS ORDERED: metroNIDAZOLE 500mg 100 ML IV SCH (20:45)
--- NOTE | 2016-11-21 22:14 | Emergency Room Report ---
History of Present Illness General Chief Complaint: Generalized Weakness Source: Patient (Francesco Rogers M.D.) Present Illness HPI The patient was brought in by EMS. She was hypotensive and hypoglycemic in the field. They gave her D50 and also started a fluid bolus. Her blood pressure started to come up when she was supine to 113 systolic. The patient has a history of congestive heart failure. She's been coughing for last several days. She denies any productive phlegm. She has not had chest pain. No vomiting although has had nausea. Denies any dysuria or diarrhea. On coumadin. Diagnoses from [place]: Hyperlipidemia, HTN, adrenal insufficiency, pulm HTN, COPD, aortic stenosis, a fib, seondary hyperparathyroidism, TIA, CKD stage 4, prediabetes, anticoagulation, H/O TB, Elevated uric acid, UTI, chondrocalcinosis. (Francesco Rogers M.D.) Allergies: Coded Allergies: No Known Allergies (Unverified , 11/13/16) Patient History Past Medical History: see triage record, old chart reviewed Social History: Denies: alcohol use, smoking Social History Narrative Family Reviewed Nursing Documentation: PMH: Agreed, PSxH: Agreed (Francesco Rogers M.D.) Nursing Documentation-PMH Past Medical History: No History, Except For Hx Cardiac Problems: Yes - CHF a-fib Hx Hypertension: Yes Hx COPD: Yes Hx Cancer: No Hx Gastrointestinal Problems: No Hx Neurological Problems: No (Francesco Rogers M.D.) Review of Systems All Other Systems: negative except mentioned in HPI (Francesco Rogers M.D.) Physical Exam Vital Signs Date Time Temp Pulse Resp B/P Pulse Ox O2 Delivery O2 Flow Rate FiO2 11/21/16 20:28 98.4 96 18 112/84 98 Room Air Sp02 EP Interpretation: reviewed, normal General Appearance: well appearing, no apparent distress, GCS 15, obese, other - weak Head: normocephalic Eyes: bilateral eye PERRL, bilateral eye normal inspection ENT: moist mucus membranes Neck: supple, no meningismus Respiratory: chest non-tender, rales, other - ronchorous cough Cardiovascular #1: regular rate, rhythm, no edema, no JVD, other - i cannot hear M of Cardiovascular #2: 2+ radial (R) Gastrointestinal: normal inspection, normal bowel sounds, non tender, no mass, non-distended Musculoskeletal: back normal, gait/station normal, normal range of motion Neurologic: alert, oriented x3, motor strength/tone normal, DTRs symmetric, sensory intact, speech normal Psychiatric: depressed affect Skin: normal inspection, warm/dry (Francesco Rogers M.D.) Medical Decision Making Diagnostic Impression: Primary Impression: Hypotension Qualified Codes: I95.9 - Hypotension, unspecified Additional Impressions: Hypoglycemia Acute renal failure (ARF) Qualified Codes: N17.9 - Acute kidney failure, unspecified ER Course Patient is brought in with EMS with hypotension and hypoglycemia. She's also been coughing. Differential includes sepsis, renal failure, acute myocardial infarction, dehydration, adrenal insufficiency amongst others. The patient needs emergent treatment with IV hydration, labs to exclude acute myocardial infarction an EKG and chest x-ray. Patient was improved mentation with observation and hydration. Ischemic changes on EKG without STEMI. Patient improving with fluids. Refuses arreola or in and out cath. Difficult draw. Labs by produce laborer. Signed out to Dr. Chang. see labs per Dr. Chang (Francesco Rogers M.D.) ER Course Patient signed out to me. She presents with weakness, hypotension, hypoglycemia. Blood pressures better now. Her [place] doctor, she's been complaining of diarrhea and weakness. She was at [place] a couple days ago. Creatinine at that time was 1.8. Creatinine here is 4.8. Patient has acute renal failure. She is stable for transfer. She refused Ar[place]ola for urine. Has not urinated yet. Lab Results Impression Labs showed renal failure (ETHAN CHANG M.D.) EKG Diagnostic Results Rate: normal Rhythm: NSR ST Segments: other - ST inversion inferiorly and laterally (Francesco Rogers M.D.) Rhythm Strip Diag. Results EP Interpretation: yes Rhythm: NSR, no PVC's, no ectopy (Francesco Rogers M.D.) Chest X-Ray Diagnostic Results EP Interpretation: Yes Findings: no consolidation, no effusion, no pneumothorax, other - RLL nodule Number of Views: 1 (Francesco Rogers M.D.) Status: improved (Francesco Rogers M.D.) Status: improved (ETHAN CHANG M.D.) Disposition: XFER SHT-TRM HOSP Condition: Serious Francesco Rogers M.D. Nov 21, 2016 22:14 ETHAN CHANG M.D. Nov 22, 2016 00:12
[2016-11-21 22:32] VITALS: BP 101/43
[2016-11-21] MEDS ORDERED: Cefepime 1gm vial ONE (22:45)
[2016-11-21 22:58] LABS: BASOPHILS % (AUTO) 0.8 % (0.0-2.0); EOSINOPHILS % (AUTO) 1.3 % (0.0-3.0); LYMPHOCYTES % (AUTO) 11.6 % (20.0-45.0); MEAN CORPUSCULAR HEMOGLOBIN 33.2 PG (27.0-31.0); MEAN CORPUSCULAR VOLUME 101 FL (80-99); MEAN PLATELET VOLUME 6.4 FL (6.5-10.1); MONOCYTES % (AUTO) 12.2 % (1.0-10.0); NEUTROPHILS % (AUTO) 74.1 % (45.0-75.0); PLATELET COUNT 276 K/UL (150-450); RED BLOOD COUNT 3.23 M/UL (4.20-5.40); RED CELL DISTRIBUTION WIDTH 12.3 % (11.6-14.8); WHITE BLOOD COUNT 16.1 K/UL (4.8-10.8)
[2016-11-21 23:18] LABS: TROPONIN I < 0.30 ng/mL (<=0.30)
[2016-11-21 23:22] LABS: ALANINE AMINOTRANSFERASE 9 U/L (3-33); ALBUMIN/GLOBULIN RATIO 0.6 (1.0-2.7); ANION GAP 20 (5-15); ASPARTATE AMINO TRANSFERASE 27 U/L (5-40); CALCIUM 7.8 mg/dL (8.6-10.2); CARBON DIOXIDE 21 mEQ/L (20-30); CHLORIDE 93 mEQ/L (98-107); CREATININE 4.8 mg/dL (0.5-0.9); HEMOLYSIS 0; POTASSIUM 3.3 mEQ/L (3.4-4.9); SODIUM 134 mEQ/L (135-145); TOTAL PROTEIN 6.8 g/dL (6.6-8.7)
[2016-11-21 23:23] LABS: INR 4.5 (0.9-1.1); PROTHROMBIN TIME 48.3 SEC (9.30-11.50)
[2016-11-21 23:30] VITALS: BP 105/45
[2016-11-22 02:18] VITALS: BP 110/65
--- NOTE | 2016-11-22 11:30 | Diagnostic Imaging Report ---
Indications: Chest pain Technique: Portable AP chest Findings: Comparison: 11/12/2016 Heart size, pulmonary vasculature remain within normal limits. Apparent nodular opacity overlying right lung base likely summation artifact. Pleura currently otherwise clear. Calcification and elongation of thoracic aorta unchanged. IMPRESSION: Are small nodular density in the/over right lung base likely summation artifact. Short interval followup recommended. Otherwise no evidence of acute disease
== END 2016-11-22 02:18 | disposition short-term general hospital (02) ==
LOC: EDBD 20:32 → EMR 20:45 → EDBEDREQ 22:37 → EMR 11-22 02:18
DX: I95.9 Hypotension, unspecified (principal); E16.2 Hypoglycemia, unspecified; N17.9 Acute kidney failure, unspecified; I50.9 Heart failure, unspecified; J44.9 Chronic obstructive pulmonary disease, unspecified; R91.8 Other nonspecific abnormal finding of lung field; E78.5 Hyperlipidemia, unspecified; Z79.01 Long term (current) use of anticoagulants; I27.2 Other secondary pulmonary hypertension; Z86.73 Personal history of transient ischemic attack (TIA), and cerebral infarction without residual deficits; I12.9 Hypertensive chronic kidney disease with stage 1 through stage 4 chronic kidney disease, or unspecified chronic kidney disease; N18.4 Chronic kidney disease, stage 4 (severe)
CPT/HCPCS: 36415; 71010; 80053; 82550; 82962; 83605; 83880; 84484; 85025; 85610; 85730; 87040; 93005; 96361; 96374; 99284; J0692